=== PATIENT | female | born 1945 | race Caucasian/White ===

== ENCOUNTER 2019-03-12 13:52 | Inpatient (IN) | payer MEDICARE ==
[~2019-03-12 13:52] MED LIST: DOPamine 800 MG/250 ML IVPREM* 3200 MCG/ML *** NOTE STRENGTH CENTR ONE
[2019-03-12] MEDS ORDERED: Ticagrelor* 90 MG TAB PO ONE (13:55)
[2019-03-12] MEDS ORDERED: NS 0.9% 1000 ML** 1,000 ML IV ONE (13:55)
[2019-03-12] MEDS ORDERED: Heparin for STEMI(*) 5,000 UNITS/ML 1 ML VIAL IV ONE (13:55)
--- NOTE | 2019-03-12 14:08 | ED ---
HPI Chest Pain - HPI Summary HPI Summary: Patient is a 73 y old F brought to [facility] by EMS with a chief complaint of chest pain described as chest pressure with onset of 2 hours ago (since 1200) today as she was getting ready to go to the beach. The patient currently rates the pain at a severity of 5/10. Patient reports shortness of breath, lightheadedness, diaphoresis. Patient reports nausea which has resolved since the onset of chest pressure. Symptoms alleviated by nothing. Symptoms aggravated by nothing. EMS received 911 call at 12:34 per EMS. Per EMS, patient complained of chest pain, nausea, and diaphoresis. En route, EMS states that patient had heart rate in the 40s and blood pressure 105/39. EKG done by EMS showed ST Elevations leads II, III, and AVF, and reciprocal changes in V2, V3. EMS obtained IV access and administered aspirin. Per EMS, patient had an episode of similar symptoms on 03/03/19 which resolved. Patient states that she had a stress test done ages ago. Patient reports PMHx hypothyroidism, hypertension. Patient denies PMHx of diabetes, hhypercholesterolemia, myocardial infarction. Patient denies smoking and drug use but reports occasional drinking. Denies Fhx of diabetes, hypertension, myocardial infarction. - History of Current Complaint Time Seen by Provider: 03/12/19 13:54 Hx Obtained From: Patient, EMS Onset/Duration: Started Hours Ago - 2, Still Present Current Severity: Moderate Pain Intensity: 5 Pain Scale Used: 0-10 Numeric Chest Pain Radiates: No Character: Pressure/Squeezing Aggravating Factor(s): Nothing Alleviating Factor(s): Nothing Associated Signs and Symptoms: Positive: Shortness of Breath, Lightheadedness, Diaphoresis - Allergy/Home Medications Allergies/Adverse Reactions: Allergies Allergy/AdvReac Type Severity Reaction Status Date / Time No Known Allergies Allergy Verified 03/12/19 14:15 Home Medications: Home Medications Levothyroxine TAB* [Synthroid TAB*] 25 mcg PO DAILY 03/12/19 [History Confirmed 03/12/19] dilTIAZem HCl [Cardizem LA] 360 mg PO DAILY 03/12/19 [History Confirmed 03/12/19 ] PMH/Surg Hx/FS Hx/Imm Hx Previously Healthy: No Endocrine/Hematology History: Reports: Hx Thyroid Disease - hypothyroidism Denies: Hx Diabetes Cardiovascular History: Reports: Hx Hypertension Denies: Hx Hypercholesterolemia, Hx Myocardial Infarction - Surgical History Surgical History: None Surgery Procedure, Year, and Place: None - Family History Known Family History: Negative: Cardiac Disease - AZ, Hypertension, Diabetes - Social History Alcohol Use: Occasionally Alcohol Amount: wine Hx Substance Use: No Substance Use Type: Reports: None Hx Tobacco Use: No Smoking Status (MU): Never Smoked Tobacco Review of Systems Positive: Skin Diaphoresis Positive: Chest Pain Positive: Shortness Of Breath Neurological: Other - lightheadedness All Other Systems Reviewed And Are Negative: Yes Physical Exam - Summary Physical Exam Summary: VITAL SIGNS: Reviewed. GENERAL: Patient is an ill-looking FEMALE who is lying comfortable in the stretcher. Patient is not in any acute respiratory distress. HEAD AND FACE: No signs of trauma. No ecchymosis, hematomas or skull depressions. No sinus tenderness. EYES: PERRLA, EOMI x 2, No injected conjunctiva, no nystagmus. EARS: Hearing grossly intact. Ear canals and tympanic membranes are within normal limits. MOUTH: Oropharynx within normal limits. NECK: Supple, trachea is midline, no adenopathy, no JVD, no carotid bruit, no c- spine tenderness, neck with full ROM. CHEST: Symmetric, no tenderness at palpation. LUNGS: Clear to auscultation bilaterally. No wheezing or crackles. CVS: Regular rhythm and bradycardic, S1 and S2 present, no murmurs or gallops appreciated. ABDOMEN: Soft, non-tender. No signs of distention. No rebound, no guarding, and no masses palpated. Bowel sounds are normal. EXTREMITIES: FROM in all major joints, no edema, no cyanosis or clubbing. NEURO: Alert and oriented x 3. No acute neurological deficits. Speech is normal and follows commands. SKIN: Diaphoretic, clammy Triage Information Reviewed: Yes Vital Signs Reviewed: Yes Diagnostics - Laboratory Result Diagrams: 03/12/19 13:58 03/13/19 05:25 Lab Statement: Any lab studies that have been ordered have been reviewed, and results considered in the medical decision making process. - EKG 1355 Cardiac Rate: NL - 55 BPM EKG Rhythm: Sinus Bradycardia Summary of EKG Findings: Sinus bradycardia at [address] elevations leads II , III, and AVF, and reciprocal changes in I, V2, and V3. Chest Pain Course/Dx - Course Assessment/Plan: Patients past medical history significant for hypertension and hypothyroidism. The patient is a nonsmoker, occasional alcohol intake no drug use. She denies any family history of MIs or hypertension. On arrival to the ED patient has 2 IV access, patient was already given aspirin 325 mg. By EMS. The patient was placed in a guarded monitor. We obtained an EKG which shows a ST elevation in leads 23 and aVF with reciprocal changes in leads I, V2 and V3. this is consistent with an inferior wall AZ. We contacted Dr. Bean from interventional cardiology and he is at bedside at this time. Patient will be admitted to his services for possible cardiac catheterization. At this point the patient is still bradycardic and is slightly hypertensive. The patient continues to have IV fluids and she was given Brilinta and heparin. Patient is going to the [employer]. - Chest Pain Differential Diagnosis/HQI/PQRI: Acute AZ, ACS, Angina, CHF, Chest Wall, GI Disease, Lower Respiratory Infection - Diagnoses Provider Diagnoses: STEMI (ST elevation myocardial infarction) During the Visit The Following Alert/Code Occurred: STEMI - 13:27 - Provider Notifications Discussed Care Of Patient With: Cherise Bean Time Discussed With Above Provider: 13:34 Instructed by Provider To: Other - 1334: Called Dr. Bean, Building Rigger. 1358: Dr. Bean in Room 11 with patient. Discharge - Sign-Out/Discharge Documenting (check all that apply): Patient Departure - admit Patient Received Moderate/Deep Sedation with Procedure: No - Discharge Plan Condition: Stable Disposition: ADMITTED TO [facility] - Billing Disposition and Condition Condition: STABLE Disposition: Admitted to [facility] - Attestation Statements Document Initiated by Scribe: Yes Documenting Scribe: Paola Morelos Provider For Whom Kerenibe is Documenting (Include Credential): Nando Lopez MD Scribe Attestation: Tahmina Quiles Alison Kim, scribed for Nando Lopez MD on 03/14/19 at 2007. Scribe Documentation Reviewed: Yes Provider Attestation: The documentation as recorded by the scribe, Paola Morelos accurately reflects the service I personally performed and the decisions made by Nando gallardo MD Status of Scribe Document: Viewed
[2019-03-12 14:14] LABS: ABS Basophils 0.1 10^3/ul (0-0.2); ABS Eosinophils 0.2 10^3/ul (0-0.6); ABS Lymphocytes 2.3 10^3/ul (1.0-4.8); ABS Monocytes 0.8 10^3/ul (0-0.8); ABS Neutrophils 5.8 10^3/ul (1.5-7.7); Eosinophil % 2.3 %; Hematocrit 46 % (35-47); Hemoglobin 15.4 g/dL (12.0-16.0); Lymphocyte % 25.3 %; Mean Corpuscular HGB Conc 34 g/dL (31-36); Mean Corpuscular Hemoglobin 32 pg (27-31); Mean Corpuscular Volume 95 fL (80-97); Mean Platelet Volume 8.7 fL (7.4-10.4); Nucleated Red Blood Cells % 0.1; Platelet Count 190 10^3/uL (150-450); Red Blood Count 4.84 10^6 /uL (3.70-4.87); Red Cell Distribution Width 14 % (10-15); White Blood Count 9.2 10^3/uL (3.5-10.8)
[2019-03-12] MEDS ORDERED: fentaNYL* 50 MCG/ML 2 ML VIAL (100 MCG VIAL) ONE (14:22)
[2019-03-12] MEDS ORDERED: Midazolam* 1 MG/ML 5 ML VIAL (5 MG) ONE (14:22)
[2019-03-12 14:26] LABS: Activated Partial Thrombo Time 27.3 seconds (26.0-38.0); INR 1.27 (0.82-1.09)
[2019-03-12 14:34] LABS: ALT 33 U/L (7-52); Albumin 3.5 g/dL (3.2-5.2); Albumin/Globulin Ratio 1.3 (1-3); Alkaline Phosphatase 69 U/L (34-104); Blood Urea Nitrogen 20 mg/dL (6-24); CO2 Carbon Dioxide 22 mmol/L (22-32); Calcium 8.5 mg/dL (8.6-10.3); Chloride 110 mmol/L (101-111); Creatine Kinase 96 U/L (10-223); EGFR African American 66.1 (>60); EGFR Non-African American 54.7 (>60); Globulin 2.6 g/dL (2-4); Glucose 161 mg/dL (70-100); LDL Cholesterol Direct 101 mg/dL; Sodium 139 mmol/L (135-145); Total Protein 6.1 g/dL (6.4-8.9)
[2019-03-12 14:39] LABS: CKMB ng/mL 3.4 ng/mL (0.6-6.3)
[2019-03-12] MEDS ORDERED: Norepinephrine VIAL* 1 MG/ML 4 ML VIAL ONE (14:58)
[2019-03-12 15:06] LABS: Anion Gap 7 mmol/L (2-11)
[2019-03-12] MEDS ORDERED: Atropine SYRINGE* 0.1 MG/ML 10 ML SYRINGE (1 MG) ONE (15:18)
[2019-03-12] MEDS ORDERED: Eptifibatide IV (Load dose)(*) 2 MG/ML 10 ml VIAL ONE (15:57)
[2019-03-12] MEDS ORDERED: Nitroglycerin TAB 0.4 MG* 0.4 MG TAB SL PRN (16:35)
[2019-03-12] MEDS ORDERED: Heparin 2 UNITS/ML IVPREMIX* 3,000 UNIT/1,500 ML BAG IV ONE (16:44)
[2019-03-12] MEDS ORDERED: Heparin(*) 1000 UNIT/ML 10 ML VIAL CATH LAB IV ONE (16:44)
[2019-03-12] MEDS ORDERED: Lidocaine 1% INJ* 10 MG/ML 30 ML SDV ONE (16:44)
[2019-03-12] MEDS ORDERED: nitroGLYCERIN DRIP* 25,000 MCG/250 ML BTL ONE (16:44)
[2019-03-12] MEDS ORDERED: Iohexol 350 (CONTRAST) 200 ML MDV IV ONE (16:44)
[2019-03-12] MEDS ORDERED: VERAPAMIL 2.5 MG/ML 2 ML VIAL ** 5 mg/2 ml ONE (16:44)
[2019-03-12] MEDS ORDERED: NS 0.9% 1000 ML** 1,000 ML IV SCH (16:45)
[2019-03-12 16:55] LABS: Cholesterol 153 mg/dL; HDL Cholesterol 31.8 mg/dL; LDL Cholesterol 79 mg/dL; Triglycerides 212 mg/dL
[2019-03-12] MEDS ORDERED: oxyCODONE/Acetamin 5/325 MG* TAB PO PRN (18:07)
[2019-03-12 18:15] LABS: Creatine Kinase 343 U/L (10-223)
[2019-03-12 18:20] LABS: CKMB ng/mL 58.7 ng/mL (0.6-6.3)
[2019-03-12 18:24] LABS: Troponin I 3.64 ng/mL (<0.04)
[2019-03-12] MEDS ORDERED: Acetaminophen TAB* 325 MG PO PRN (18:32)
--- NOTE | 2019-03-12 19:51 | HP ---
HISTORY AND PHYSICAL: DATE OF ADMISSION: 03/12/19 HISTORY OF PRESENT ILLNESS: A 73-year-old woman brought from the field by EMS with acute inferior wall ST elevation infarct with bradycardia. ECG from the field shows AF w slow VR or junctional escape, HR 38 w apparently maintained BP. She received 1 L NS, aspirin from EMS, in the ER was still complaining of chest pain, received Brilinta 180 mg p.o., heparin 4000 units IV, Atropine 0.5 mg IV. A STEMI was called while she was in the field. In retrospect, she felt poorly about a week ago with nonspecific symptoms. Today, she developed precordial chest pain at around 2 p.m. She denies any history of syncope, bleeding on aspirin 81 mg daily or exercise limitation. She has no history of heart failure symptoms. She is normally quite active. She is unaware of any previous arrhythmia. has HO coronary stents and AF. PAST MEDICAL HISTORY: Hypertension, on Cardizem, unknown milligram; hypothyroidism, on Synthroid, unknown milligram as well as aspirin 81 mg daily. ALLERGIES: None to medications. FAMILY HISTORY: Negative for premature coronary artery disease. SOCIAL HISTORY: She is a nonsmoker. She is . REVIEW OF SYSTEMS: General: No weight loss. No fever. 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 GI: No history of peptic ulcer disease or bleeding. Heme: No history of malignancy or anemia. Circulatory: No history of claudication. Endocrine: Denies any history of diabetes. Remainder all negative. PHYSICAL EXAM: VITAL SIGNS: On arrival in the ER, BP 89/57 with heart rate 45. HEENT: Without xanthelasma, scleral injection or jaundice. EOMs grossly normal. Cranial nerves grossly intact. NECK: No thyromegaly. LUNGS: Clear laterally without rales or wheezes. JVP not elevated, carotids palpable bilaterally. No bruits. CARDIAC: RV and apex not palpable, bradycardic rhythm. No audible gallop, murmur, or rub. ABDOMEN: Soft, nontender. Normal bowel sounds. Aorta and liver not palpable. No masses. Femoral pulses 2+. No bruits. EXTREMITIES: Radial and pedal pulses palpable. No cyanosis, clubbing, or edema. SKIN: Mildly diaphoretic. DIAGNOSTIC STUDIES/LAB DATA: EKG showed acute inferior wall ST elevation infarct with bradycardia. The presenting EKG is not currently in the [facility] system. CBC is normal. Potassium hemolyzed, creatinine 1, GFR of 54.7. Random blood sugar high at 161 with a calcium of 8.5. BNP elevated at 159. Cholesterol 153 , triglycerides 212, LDL direct 101, HDL 31.8. IMPRESSION AND PLAN: 1. Acute inferior wall ST-elevation infarct with bradycardia, hypotension, no right-sided EKG available. I am unable to review her ER presenting EKG at the time of dictation as it is not in her [facility] record. By recollection, she had a noisy baseline with possibly atrial fibrillation with a slow ventricular rate. I will confirm that once I can locate that EKG. She underwent emergent catheterization after review of the procedure, indications, procedure risks with her and her family. 2. Hyperglycemia, consistent with metabolic syndrome. I will check a hemoglobin A1c. 3. History of hypothyroidism. We will continue her replacement once we define her dose. 4. History of hypertension. We will switch her to an JARET inhibitor from [facility]. 5. PAF w slow VR vs Junctional escape. [id number]/[facility]PS #: [id number] [facility]
[2019-03-12] MEDS: Atorvastatin* 80 MG TAB PO SCH (20:24)
[2019-03-12] MEDS: Ticagrelor* 90 MG TAB PO SCH (20:24)
[2019-03-12 22:56] LABS: AST Redraw 127 U/L (13-39)
[2019-03-12 23:34] LABS: CKMB ng/mL 159.2 ng/mL (0.6-6.3); Creatine Kinase 661 U/L (10-223); Troponin I 14.01 ng/mL (<0.04)
[2019-03-13 06:21] LABS: BUN/Creatinine Ratio 25.4 (8-20); Calcium 8.2 mg/dL (8.6-10.3); EGFR African American 112.7 (>60); EGFR Non-African American 93.2 (>60); Potassium 4.1 mmol/L (3.5-5.0)
[2019-03-13 06:27] LABS: Troponin I 21.15 ng/mL (<0.04)
[2019-03-13] MEDS: Aspirin 81 mg CHEW TAB* 81 MG TAB.CHEW PO SCH (07:59)
[2019-03-13] MEDS: Ticagrelor* 90 MG TAB PO SCH ×2 (07:59→20:18)
[2019-03-13 09:00] LABS: Troponin I 16.19 ng/mL (<0.04)
[2019-03-13] MEDS: Metoprolol Tartrate TAB* 25 MG PO SCH ×2 (10:41→17:39)
[2019-03-13] MEDS: Captopril TAB* 12.5 MG PO SCH ×3 (10:42→20:18)
--- NOTE | 2019-03-13 11:13 | ECHO ---
*[facility]* [place] [address] Fax #: [phone] Transthoracic Echocardiogram Patient: Effie Walton : 1945 Study Date: 03/13/2019 Age: 73 Gender: F HR: 71 bpm Height: 64 in /162.6 cm BSA: 1.8 m^2 Weight: 164.7 lb /74.8 kg BMI: 28.3 kg/m^2 *Snipper: * Priti Alvarenga [facility] *Referring Physician: * Cherise Bean MD *Reading Physician: * Jose David Robert MD Indications: Myocardial Infarction (new). History: Risk factors: Hypertension. Labs, prior tests, procedures, and surgery: Catheterization (03/12/2019). There was a stenosis which was treated with a stent. Conclusions Summary: 1. Left ventricle: The cavity size is normal. Wall thickness is normal. Systolic function is overall normal. The estimated ejection fraction is 55-60%. Severe hypokinesis of the basal inferior myocardium. 2. Normal cardiac chamber sizes. 3. Functionally benign heart valves. 4. There is no prior echocardiogram available to compare with at this time. Study data: Transthoracic echocardiogram. Procedure: Transthoracic echocardiography was performed. Image quality was good. Complete 2D, spectral Doppler, and color flow Doppler. Location: ICU Patient status: Inpatient. Patient room number: 8. Rhythm: Normal sinus rhythm. Findings Left ventricle: The cavity size is normal. Wall thickness is normal. Systolic function is overall normal. The estimated ejection fraction is 55-60%. Regional wall motion abnormalities: Severe hypokinesis of the basal inferior myocardium. There is no consistent Doppler evidence of clinically significant diastolic dysfunction. Right ventricle: The cavity size is normal. Systolic function is normal. Left atrium: The atrium is normal in size. Right atrium: The atrium is normal in size on 2-D visual estimation. Mitral valve: The annulus is mildly calcified. The leaflets are mildly thickened. There is trivial regurgitation. Aortic valve: Not well visualized. The leaflets are mildly thickened. There is no evidence of stenosis. There is no significant regurgitation. Tricuspid valve: The leaflets are normal thickness. There is no significant regurgitation. Pulmonic valve: Not well visualized. There is no significant regurgitation. Aorta: Aortic root: The aortic root is appears normal. Ascending aorta: The ascending aorta is not visualized. Aortic arch: The aortic arch is appears normal and calcified. Pericardium: There is no significant pericardial effusion. Pulmonary arteries: Not well visualized. There is no significant pulmonic stenosis nor regurgitation. Pulmonic valve velocity estimated at 0.5 m/sec. Systolic pressure is within the normal range. Systemic veins: Inferior vena cava: The vessel is normal in size. The respirophasic diameter changes are blunted (< 50%). Measurements Left ventricle Value Ref Aortic valve Value Ref TASIA, LAX 4.5 cm 3.8 - 5.2 Chelsea diam, ED 2.2 cm ----- ESD, LAX 2.9 cm 2.2 - 3.5 Peak v, S 1.06 m/sec ----- FS, LAX 36 % 27 - 45 VTI, S 20.0 cm ----- PW, ED, LAX 0.9 cm 0.6 - 0.9 Mean grad, S 2.0 mm Hg ----- EF 65 % 54 - 74 Peak grad, S 4.0 mm Hg ----- E', lat hcelsea, TDI (L) 9.9 cm/sec >=10.0 E/e', lat chelsea, 7 Mitral valve Value Ref TDI Peak E 0.69 m/sec ----- E', med chelsea, TDI (L) 3.6 cm/sec >=7.0 Peak A 0.58 m/sec --- -- E/e', med chelsea, 19 Decel time 177 ms ----- TDI Peak E/A ratio 1.2 ----- E', avg, TDI 6.8 cm/sec E/e', avg, TDI 10 <=14 Tricuspid valve Value Ref TR peak v 1.7 m/sec <=2.8 LVOT Value Ref Peak RV-RA grad, S 12 mm Hg ----- Peak maria guadalupe, S 0.89 m/sec Mean grad, S 1 mm Hg Aortic root Value Ref Root diam 2.9 cm <4.0 Ventricular septum Value Ref IVS, ED (H) 1.0 cm 0.6 - 0.9 Aortic arch Value Ref Arch diam 2.6 cm ----- Right ventricle Value Ref TASIA, LAX 1.7 cm Decending aorta Value Ref Pressure, S 20 mm Hg Amberly peak maria guadalupe 0.55 m/sec ----- Left atrium Value Ref Pulmonary artery Value Ref AP dim, ES 3.30 cm 2.70 - Pressure, S 20.0 mm Hg ----- 3.80 ML dim, A4C 3.5 cm Inferior vena cava Value Ref SI dim, A4C 5.4 cm Diam 1.7 cm ----- Vol/bsa, ES, A/L 30 ml/m^2 16 - 34 Right atrium Value Ref Estimated RAP 8 mm Hg Legend: (L) and (H) gwen values outside specified reference range. Prepared and electronically signed by Jose David Robert MD 03/13/2019 11:12
[2019-03-13 11:50] LABS: Troponin I 21.49 ng/mL (<0.04)
[2019-03-13 13:17] LABS: Creatine Kinase 1048 U/L (10-223)
[2019-03-13 13:24] LABS: CKMB ng/mL 211.6 ng/mL (0.6-6.3)
[2019-03-13] MEDS: Levothyroxine TAB* 25 MCG TAB PO SCH (13:26)
[2019-03-13 13:33] LABS: TSH (Thyroid Stimulating Horm) 2.2 mcIU/mL (0.34-5.60)
[2019-03-13 14:19] LABS: Troponin I 17.75 ng/mL (<0.04)
[2019-03-13] MEDS: Atorvastatin* 80 MG TAB PO SCH (17:39)
[2019-03-14] MEDS: Metoprolol Tartrate TAB* 25 MG PO SCH ×3 (01:06→20:12)
[2019-03-14] MEDS: Levothyroxine TAB* 25 MCG TAB PO SCH (05:16)
[2019-03-14] MEDS: Lisinopril TAB* 5 MG PO SCH (09:07)
[2019-03-14] MEDS: Aspirin 81 mg CHEW TAB* 81 MG TAB.CHEW PO SCH (09:07)
[2019-03-14] MEDS: Ticagrelor* 90 MG TAB PO SCH ×2 (09:07→20:12)
[2019-03-14] MEDS ORDERED: Loperamide CAP* 2 MG PO PRN (09:35)
--- NOTE | 2019-03-14 11:20 | CONS ---
CC: Dr. Raul Flowers; Dr. Georgina Loaiza; Dr. Shubham Chandra * CONSULTATION REPORT: DATE OF CONSULT: 03/14/19 PRIMARY CARE PROVIDER: Dr. Raul Flowers in [place], [place]. MY ATTENDING WHILE IN THE HOSPITAL: Dr. Georgina Loaiza. CONSULTING PROVIDER: Dr. Shubham Chandra. REASON FOR CONSULT: Diarrhea. HISTORY OF PRESENT ILLNESS: Ms. Walton is a 73-year-old female with past medical history significant for hypertension, hypothyroidism who was admitted 2 days ago on 03/12/[address]-elevation wall myocardial infarction with bradycardia and a significantly elevated troponin. The patient was taken to the builder's labourer and 3 stents were placed in the RCA. The patient's troponin peaked at 21.49. The patient had no elevated white count on admission. The patient had been camping before her admission. The patient's LDL cholesterol was 79 and 101 with direct assay. The patient's TSH was checked and was 2.2. The patient overnight 03/13/19 to 03/14/19 began to have large amounts of nonbloody "more solid than liquid" diarrhea approximately 6 hours apart and then a third on the morning of 03/14/19. The patient had recently been camping. The patient used her own water, which she got from home and did not have any exposure to stream water. The patient works at a [employer], has not worked for 5 days. The patient denies any sick contacts with close family members. The patient did not have abdominal pain with diarrhea. The patient did not have fevers or chills. The patient has not recently had any antibiotics. The patient has no history of inflammatory bowel disease. The patient has never had a colonoscopy. PAST MEDICAL HISTORY: Hypertension, hypothyroidism, recent STEMI. MEDICATIONS: Medications that were started on the patient since her arrival were: 1. Lipitor. 2. Lisinopril. 3. Metoprolol. 4. Brilinta. The patient denies chest pain, shortness of breath, dysuria, dizziness on standing. The patient has a good appetite. The patient's weight has been fluctuating recently. The patient never had an episode like this before. ALLERGIES: None. FAMILY HISTORY: The patient's parents both of old age, her mother at 88, her father at 78. SOCIAL HISTORY: The patient is an infrequent smoker, but does smoke several cigarettes intermittently. The patient drinks occasionally, a Allen Light on Thursday night she said. Denies any illicit drug use. 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 The patient is . The patient's surrogate decision maker will be her . REVIEW OF SYSTEMS: A 14-point review of systems was reviewed and it is negative except as above in the HPI. PHYSICAL EXAM: General: The patient is a 73-year-old female who appears the stated age, sitting comfortably in bed, in no acute distress. Vital Signs: At the time of evaluation, temperature 97.9, pulse rate of 76, respiratory rate 18 , oxygen saturation 98% on room air, blood pressure 140/77. HEENT: Head normocephalic and atraumatic. Sclerae anicteric. No conjunctival injection. Nasal mucosa moist. Oral mucosa moist. No oropharyngeal erythema, discharge, or exudate. Neck: Supple, nontender. No lymphadenopathy. No carotid bruits auscultated. No JVD. Cardiac: Regular rate and rhythm. No clicks, murmurs, gallops, or rubs. Pulses are 2+ in the dorsalis pedis, posterior tibialis, and radial areas. Respiratory: Clear to auscultation bilaterally. No wheezes, rales, or rhonchi. Good air exchange bilaterally. Abdomen: Soft, nontender, and nondistended. Bowel sounds present and normoactive in all 4 quadrants. No hepatosplenomegaly. No abdominal bruits auscultated. No hepatojugular reflux. Genitourinary: No suprapubic or CVA tenderness. Skin: Clean, dry, and intact. No rashes. Radial site well without concern or hematoma. Neuro: Cranial nerves II through XII intact. No focal deficits. She is alert or oriented x3. Psychiatric: Pleasant and cooperative. DIAGNOSTIC STUDIES/LAB DATA: Sodium 140, potassium 4.1, chloride 112, carbon- dioxide 20, anion gap 8, BUN 16, creatinine of 0.63, glucose 88, calcium 8.2. TSH 2.2. Most recent troponin 17.75. Slightly elevated creatinine on admission. Slightly elevated BNP on admission. Normal albumin. The patient's CBC was unremarkable. LDL cholesterol of 79, HDL cholesterol of 31, total cholesterol 153. ASSESSMENT AND PLAN: Impression: Ms. Walton is a 73-year-old female with a past medical history significant for hypertension, hypothyroidism who presented to the emergency department with ST-elevation myocardial infarction with bradycardia, status post 3 stents in her RCA, who has been recovering well, but over the last 12 hours has developed several episodes of nonbloody diarrhea likely related to medication adverse reaction. Diarrhea. There is a very low suspicion at this point for inflammatory or infectious etiology for this diarrhea. The patient has not received antibiotics recently. There is no blood in the patient's stool. The patient has not had abdominal pain nor fevers in association with this. The patient has been camping, but was careful to avoid stream water. The patient has no history of inflammatory bowel disease. The patient's abdominal exam is entirely benign. There is no reason the patient cannot take Imodium for symptomatic control of her diarrhea. The patient was recently started on Lipitor which has a 7% to 14% incidence of diarrhea as an adverse effect. This is not reported with rosuvastatin to the same frequency. The patient has no other signs that this is related to a true type 1 hypersensitivity reaction. The patient's statin will be switched to Crestor 20 mg daily as discussed with Dr. Shubham Chandra of Cardiology. It has been discussed with the patient that she should take the Crestor and follow up with her primary care provider if her diarrhea persists for further workup including stool studies and possible other changes in medication to assess for other drug-induced cause, though there is unlikely to be any added benefit from doing these studies at this time. ST-elevation myocardial infarction. Management per Cardiology. The patient seems to be recovering well. The patient does have hypokinesis of the inferior wall of her heart on echocardiogram with a preserved ejection fraction. Continue statin, aspirin, Brilinta, metoprolol, and lisinopril. The patient is not having active chest pain nor shortness of breath. Hypertension. The patient's new blood pressure medications will be deferred to Cardiology. DVT prophylaxis. SCDs and ambulation. The patient is a low-risk. TIME SPENT: Approximately 45 minutes was spent on the consultation, 30 of which was spent [id number] with the patient obtaining history and physical and discussing the treatment plan. This plan was discussed with my attending, Dr. Georgina Loaiza, and she in agreement. SHAMAR LINTON [id number]/[facility] #: [id number] EHSAN
[2019-03-14] MEDS ORDERED: CMC:Rosuvastatin (NF) 20 MG TAB PO SCH (17:00)
[2019-03-14] MEDS ORDERED: Atorvastatin* 40 MG TAB PO SCH (17:00)
[2019-03-15] MEDS: Levothyroxine TAB* 25 MCG TAB PO SCH (05:20)
[2019-03-15 06:31] LABS: BUN/Creatinine Ratio 24.4 (8-20); Calcium 9.2 mg/dL (8.6-10.3); EGFR African American 88.1 (>60); EGFR Non-African American 72.8 (>60)
[2019-03-15 07:25] VITALS: BP 141/75
[2019-03-15] MEDS: Ticagrelor* 90 MG TAB PO SCH (08:42)
[2019-03-15] MEDS: Aspirin 81 mg CHEW TAB* 81 MG TAB.CHEW PO SCH (08:42)
[2019-03-15] MEDS: Lisinopril TAB* 5 MG PO SCH (08:42)
[2019-03-15] MEDS: Metoprolol Tartrate TAB* 25 MG PO SCH (08:42)
--- NOTE | 2019-03-15 10:45 | DS ---
CC: Dr. Raul Flowers DISCHARGE SUMMARY: DATE OF ADMISSION: 03/12/19 DATE OF DISCHARGE: 03/15/19 FINAL DIAGNOSES: 1. Acute ST-segment elevation inferior wall myocardial infarction, complicated by severe bradycardia and hypotension. SECONDARY DIAGNOSES: 1. Hypertension. 2. Hypothyroidism. DISCHARGE MEDICATIONS: Include: 1. Aspirin 81 mg a day. 2. Levothyroxine 25 mcg daily. 3. Lisinopril 2.5 mg daily. 4. Metoprolol tartrate 25 mg three times a day. 5. Sublingual nitroglycerin 0.4 mg sublingually as needed. 6. Rosuvastatin 20 mg daily. 7. Brilinta 90 mg twice a day. HOSPITAL COURSE: The patient came to the hospital on 03/12/19, brought in by the emergency medical services, who had called a STEMI in the field. Please refer to the H and P for complete details. The patient was taken emergently to the cardiovascular laboratory where cardiac catheterization and intervention was performed. During the course of the catheterization, the patient needed atropine, dopamine and Levophed for support of blood pressure and bradycardia. The left main and the left anterior descending artery did not have significant disease. The circumflex had a mid 60% lesion according to Dr. Bean' preliminary report (the official report is not available at the time of this discharge). 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 Multiple stents were placed including a 2.5 x 12 mm long [employer] Synergy stent overlapped distally with a 2.5 x 28 mm long Synergy drug-eluting stent, eventually overlapping more proximally with a 2.75 x 8 mm long Synergy drug- eluting stent. Postprocedure, the patient did well and had a transthoracic echocardiogram performed that revealed a left ventricular ejection fraction of 55% to 60% with severe hypokinesis of the basal inferior myocardium. There was no significant valvular disease seen. The cardiac enzymes revealed a peak troponin of 21.49. Over the course of the hospitalization, medications were adjusted. She was up and about and eventually discharged home on 03/15/19. She had significant diarrhea with the atorvastatin. The hospitalist service saw her in consultation and she was switched to rosuvastatin. PHYSICAL EXAMINATION: At the time of discharge revealed vital signs before morning medications, blood pressure 141/75, pulse 64 and regular, respirations 16, O2 saturation 97% on room air. Neck was supple. There was no increased JVP. Carotid had fair upstroke and volume. There were no definitive bruits present. Lungs revealed no active rales, rhonchi, or wheezes. Heart revealed no visible heaves, no palpable heaves or thrills. Irregular rate and rhythm was noted. Abdomen was obese, soft, nontender. Extremities without edema. The right radial artery and forearm area had mild ecchymosis, but no significant hematoma. There was good antegrade flow down the right radial artery and no significant bruit was noted. Neuro: The patient was alert and oriented with normal mentation. Musculoskeletal: The patient with normal gait. Psychiatric: The patient with normal affect. LABORATORY DATA: Laboratory results on the day of discharge showed sodium 139, potassium 4.0, chloride 110, bicarb 22, BUN and creatinine of 19 and 0.78. The patient was given an education cardiac booklet in addition to her stent card. At this point in time, she is not from our area and will be returning to the [facility]. Her family doctor is Dr. Raul Flowers (Dr. Flowers's telephone number is [phone]. The address is [address] [place] [address]). The patient was in stable condition at the time of discharge and will be discharged to home here right now, but will be eventually as mentioned returning to her home in [place] within the next 24 hours. She was personally given medications to cover 2 days to give her time to get back and get her prescriptions from her pharmacy, which we are in the process of sending. [id number]/[facility] #: [id number] MTDCindy
[2019-03-15] MEDS ORDERED: Metoprolol Tartrate TAB* 25 MG PO SCH (14:00)
== END 2019-03-15 11:54 | disposition home or self-care (01) | DRG 247 ==
LOC: ED 13:52 → CHICATH 14:11 → ICU 16:35 → MEDTELE 03-13 13:05
PROVIDERS: ADMIT Internal Medicine Cardiovascular Disease; ATTEND Internal Medicine Cardiovascular Disease
PROC: B2111ZZ Fluoroscopy of Multiple Coronary Arteries using Low Osmolar Contrast (ICD-10-PCS; 2019-03-12)
PROC: 027036Z Dilation of Coronary Artery, One Artery with Three Drug-eluting Intraluminal Devices, Percutaneous Approach (ICD-10-PCS; principal; 2019-03-12 14:00)
DX: I21.19 ST elevation (STEMI) myocardial infarction involving other coronary artery of inferior wall (principal); K52.1 Toxic gastroenteritis and colitis; R00.1 Bradycardia, unspecified; I95.9 Hypotension, unspecified; I10 Essential (primary) hypertension; E03.9 Hypothyroidism, unspecified; I25.10 Atherosclerotic heart disease of native coronary artery without angina pectoris; T46.6X5A Adverse effect of antihyperlipidemic and antiarteriosclerotic drugs, initial encounter; Y92.239 Unspecified place in hospital as the place of occurrence of the external cause; I48.0 Paroxysmal atrial fibrillation; R73.9 Hyperglycemia, unspecified; F17.210 Nicotine dependence, cigarettes, uncomplicated; Z79.82 Long term (current) use of aspirin; Z79.02 Long term (current) use of antithrombotics/antiplatelets; Z82.49 Family history of ischemic heart disease and other diseases of the circulatory system; Z72.89 Other problems related to lifestyle
CPT/HCPCS: 36415; 80048; 80053; 80061; 82550; 82553; 83036; 83721; 83880; 84443; 84484; 85025; 85347; 85610; 85730; 87641; 93005; 93306; 99156; 99157; 99284; 99406; A9270-GY; C1725; C1769; C1876; C1887; C9606-RC; J0461; J1265; J1327; J1644; J2250; J3010